=== PATIENT | female | born 1990 | race Caucasian/White ===

== ENCOUNTER 2016-08-02 08:41 | Emergency (ER) | payer MEDICAID ==
[2016-08-02] MEDS ORDERED: Ondansetron 4 MG/2 ML SDV IVPUSH ONE (09:22)
--- NOTE | 2016-08-02 09:24 | EDM.PDOC ---
ED HPI - General Chief Complaint: MATERIAL LIAISON Problem Stated Complaint: 5-6WKS /DIZZY & CRAMPING Time Seen by Provider: 08/02/16 09:24 Source: Reports: Patient History Limitations: Reports: No limitations - History of Present Illness INITIAL COMMENTS - FREE TEXT/NARRATIVE: pt arrived with alot cramping accross the lower abdomn. She states this started in the last day and a half. She has been vomiting alot. She did vomit everything in the last few hours/ Timing/Duration: Reports: Hour(s):, Getting worse Location, : Reports: abdomen - Related Data Allergies/ADRs: Allergies Allergy/AdvReac Type Severity Reaction Status Date / Time No Known Allergies Allergy Verified 08/02/16 09:02 Home Meds: Home Meds Vits #90/Iron Fum/FA [ Formula] 1 tab PO DAILY 12/15/13 [ History] medroxyPROGESTERone Acetate [Depo-Provera] 1 injection IM Q90D 07/13/14 [History ] Past Medical History MATERIAL LIAISON History: Reports: Other OB/BYN History: Fr 4 years old vaginal delivery at 40 weeks normal Social & Family History - Tobacco Use Smoking Status *Q: Current Every Day Smoker Years of Tobacco use: 4 Packs/Tins Daily: 0.5 Used Tobacco, but Quit: Yes Month Tobacco Last Used: June 2013 Second Hand Smoke Exposure: No - Caffeine Use Caffeine Use: Reports: Tea - Alcohol Use Days Per Week of Alcohol Use: 0 - Recreational Drug Use Recreational Drug Use: No ED ROS GENERAL - Review of Systems Review Of Systems: See Below Constitutional: Reports: no symptoms HEENT: Reports: No symptoms Respiratory: Reports: No Symptoms Cardiovascular: Reports: No symptoms Endocrine: Reports: no symptoms GI/Abdominal: Reports: Other ( crampy lower abdomanal pain) : Reports: no symptoms Musculoskeletal: Reports: no symptoms Skin: Reports: no symptoms Neurological: Reports: No Symptoms ED EXAM - Physical Exam Exam: See Below Text/Narrative:: pt arrived with a history of alot of vomiting for the past 2 days. Exam Limited By: No limitations General Appearance: alert, mild distress Ears: normal TMs Nose: normal inspection Throat/Mouth: Normal inspection Head: atraumatic Neck: normal inspection Respiratory/Chest: no respiratory distress Cardiovascular: regular rate, rhythm GI/Abdominal: soft, other ( She is tender accross the lower abdoman. ) Rectal Exam: Deferred heart tones: not heard Back Exam: normal inspection Extremities: normal inspection Course - Vital Signs Last Recorded V/S: Last Vital Signs Temp 36.2 C 08/02/16 08:54 Pulse 63 08/02/16 08:54 Resp 14 08/02/16 08:54 BP 125/75 08/02/16 08:54 Pulse Ox 99 08/02/16 08:54 - Orders/Labs/Meds Orders: Active Orders 24 hr Category Date Time Status OB Ltd 1 or More Fetus [US] Stat Exams 08/02/16 09:22 Ordered HCG QUANTITATIVE,SERUM [CHEM] Stat Lab 08/02/16 09:30 Received UA W/MICROSCOPIC [URIN] Urgent Lab 08/02/16 11:37 Ordered Sodium Chloride 0.9% [Normal Saline] 1,000 ml Med 08/02/16 09:30 Active IV ASDIRECTED Sodium Chloride 0.9% [Normal Saline] 1,000 ml Med 08/02/16 10:30 Active IV ASDIRECTED Medication Orders Sodium Chloride (Normal Saline) 1,000 mls @ 999 mls/hr IV ASDIRECTED STEVIE Last Admin: 08/02/16 09:33 Dose: 999 mls/hr Sodium Chloride (Normal Saline) 1,000 mls @ 999 mls/hr IV ASDIRECTED STEVIE Labs: Laboratory Tests 08/02/16 08/02/16 Range/Units 09:28 09:28 WBC 9.9 (4.5-11.0) K/uL RBC 4.70 (3.30-5.50) M/uL Hgb 14.4 (12.0-15.0) g/dL Hct 40.6 (36.0-48.0) % MCV 86 (80-98) fL MCH 31 (27-31) pg MCHC 36 (32-36) % Plt Count 276 (150-400) K/uL Neut % (Auto) 62 (36-66) % Lymph % (Auto) 29 (24-44) % Scurry % (Auto) 8 H (2-6) % Eos % (Auto) 2 (2-4) % Baso % (Auto) 1 (0-1) % Sodium 138 L (140-148) mmol/L Potassium 4.7 (3.6-5.2) mmol/L Chloride 103 (100-108) mmol/L Carbon Dioxide 26 (21-32) mmol/L Anion Gap 13.7 (5.0-14.0) mmol/L BUN 8 (7-18) mg/dL Creatinine 0.7 (0.6-1.0) mg/dL Est Cr Clr Drug Dosing 111.51 mL/min Estimated GFR (MDRD) > 60 (>60) Glucose 94 (74-106) mg/dL Calcium 9.2 (8.5-10.1) mg/dL Total Bilirubin 1.1 H (0.2-1.0) mg/dL AST 14 L (15-37) U/L ALT 26 (12-78) U/L Alkaline Phosphatase 74 (46-116) U/L Total Protein 7.4 (6.4-8.2) g/dL Albumin 4.0 (3.4-5.0) g/dL Globulin 3.4 (2.3-3.5) g/dL Albumin/Globulin Ratio 1.2 (1.2-2.2) Meds: Medications Generic Name Dose Route Start Last Admin Trade Name Freq PRN Reason Stop Dose Admin Sodium Chloride 1,000 mls @ 999 mls/hr 08/02/16 09:30 08/02/16 09:33 Normal Saline IV 999 mls/hr ASDIRECTED STEVIE Administration Sodium Chloride 1,000 mls @ 999 mls/hr 08/02/16 10:30 Normal Saline IV ASDIRECTED STEVIE Discontinued Medications Generic Name Dose Route Start Last Admin Trade Name Freq PRN Reason Stop Dose Admin Ketorolac Tromethamine 60 mg 08/02/16 10:27 Toradol IM 08/02/16 10:28 ONETIME ONE Ondansetron HCl 4 mg 08/02/16 09:22 08/02/16 09:37 Zofran IVPUSH 08/02/16 09:23 4 mg ONETIME ONE Administration - Re-Assessments/Exams Free Text/Narrative Re-Assessment/Exam: 08/02/16 11:42 Us was done which showed a large 6 cm solid looking cyst in the left adnexal area. She has a intrauterine preg at about 6 weeks. Sh was given 2 liters of fluid. She is feeling better. Departure - Departure Time of Disposition: 11:44 Disposition: Home, Self-Care 01 Condition: fair Clinical Impression: Dehydration, 6 weeks gestation of , Dermoid cyst of left ovary Forms: ED Department Discharge Care Plan Goals: push fluids, get an appt with her ob Doctor of choice, zoforan 4mg subling q6h prn for nausea. - My Orders Last 24 Hours: My Active Orders 08/02/16 09:22 OB Ltd 1 or More Fetus [US] Stat 08/02/16 09:30 HCG QUANTITATIVE,SERUM [CHEM] Stat Sodium Chloride 0.9% [Normal Saline] 1,000 ml IV ASDIRECTED 08/02/16 10:30 Sodium Chloride 0.9% [Normal Saline] 1,000 ml IV ASDIRECTED 08/02/16 11:37 UA W/MICROSCOPIC [URIN] Urgent - Assessment/Plan Last 24 Hours: My Active Orders 08/02/16 09:22 OB Ltd 1 or More Fetus [US] Stat 08/02/16 09:30 HCG QUANTITATIVE,SERUM [CHEM] Stat Sodium Chloride 0.9% [Normal Saline] 1,000 ml IV ASDIRECTED 08/02/16 10:30 Sodium Chloride 0.9% [Normal Saline] 1,000 ml IV ASDIRECTED 08/02/16 11:37 UA W/MICROSCOPIC [URIN] Urgent
[2016-08-02] MEDS ORDERED: Sodium Chloride 0.9% 1,000 ML IV SCH ×2 (09:30→10:30)
[2016-08-02] MEDS ORDERED: Ketorolac 60 MG/2 ML SDV IM ONE (10:27)
[2016-08-02 12:45] VITALS: BP 106/56
== END 2016-08-02 12:30 | disposition home or self-care (01) ==
LOC: JP.ED 08:41
DX: O26.891 Other specified pregnancy related conditions, first trimester (principal); E86.0 Dehydration; D27.1 Benign neoplasm of left ovary; O99.331 Smoking (tobacco) complicating pregnancy, first trimester; F17.210 Nicotine dependence, cigarettes, uncomplicated; Z79.899 Other long term (current) drug therapy; Z3A.01 Less than 8 weeks gestation of pregnancy
CPT/HCPCS: 36415; 76801; 76817; 80053; 81001; 84702; 85025; 96361; 96374; 99284; J2405; J7040